=== PATIENT | female | born 1955 | race Caucasian/White ===

== ENCOUNTER 2017-10-15 11:01 | Outpatient (CLI) | END 2017-10-15 11:02 | disposition short-term general hospital (02) | LOC: AMBL 11:01 | PROVIDERS: ATTEND Internal Medicine | DX: R56.9 Unspecified convulsions (principal); S01.512A Laceration without foreign body of oral cavity, initial encounter; R32 Unspecified urinary incontinence; R41.0 Disorientation, unspecified; G30.9 Alzheimer's disease, unspecified; F02.80 Dementia in other diseases classified elsewhere, unspecified severity, without behavioral disturbance, psychotic disturbance, mood disturbance, and anxiety; N18.9 Chronic kidney disease, unspecified ==

== ENCOUNTER 2018-03-31 11:11 | Outpatient (CLI) | END 2018-03-31 11:59 | disposition short-term general hospital (02) | LOC: AMBL 11:11 | PROVIDERS: ATTEND Internal Medicine | DX: R56.9 Unspecified convulsions (principal); R32 Unspecified urinary incontinence; R41.0 Disorientation, unspecified; R73.9 Hyperglycemia, unspecified ==

== ENCOUNTER 2019-03-07 20:19 | Outpatient (CLI) | END 2019-03-07 20:54 | disposition short-term general hospital (02) | LOC: AMBL 20:19 | PROVIDERS: ATTEND Family Medicine | DX: R53.83 Other fatigue (principal); R41.0 Disorientation, unspecified; R26.81 Unsteadiness on feet; G30.9 Alzheimer's disease, unspecified; F02.80 Dementia in other diseases classified elsewhere, unspecified severity, without behavioral disturbance, psychotic disturbance, mood disturbance, and anxiety ==